=== PATIENT | male | born 1960 | race Two or more races ===

== ENCOUNTER 2020-12-12 09:27 | Outpatient (CLI) | payer OTHER | END 2020-12-12 10:00 | disposition home or self-care (01) | LOC: PPH VACUNA 09:27 | DX: Z23 Encounter for immunization (principal) ==

== ENCOUNTER 2021-01-02 08:00 | Outpatient (CLI) | payer OTHER | END 2021-01-02 08:30 | disposition home or self-care (01) | LOC: PPH VACUNA 08:00 | DX: Z23 Encounter for immunization (principal) ==

== ENCOUNTER → 2021-09-22 10:00 | Outpatient (CLI) | payer OTHER | END | disposition home or self-care (01) | LOC: PPH VACUNA 10:00 | PROVIDERS: ATTEND Emergency Medicine Pediatric Emergency Medicine | DX: Z23 Encounter for immunization (principal) ==